=== PATIENT | male | born 1950 | race Hispanic/Latino ===

== ENCOUNTER 2017-08-09 10:00 | Inpatient (IN) | payer OTHER, MEDICARE ==
[~2017-08-09] VITALS: Ht 172.7 cm; Wt 96.8 kg
[2017-08-09 11:00] VITALS: BP 186/91
[2017-08-09 11:12] LABS: BASOPHILS % (AUTO) 0.4 % (0.0-5.0); EOSINOPHILS % (AUTO) 7.3 % (0.0-8.0); HEMATOCRIT 41.2 % (42-54); LYMPHOCYTES % (AUTO) 33.7 % (21.0-51.0); MEAN CORPUSCULAR HEMOGLOBIN 30.7 pg (27.0-33.0); MEAN CORPUSCULAR HGB CONC 34.7 g/dL (32.0-36.0); MEAN CORPUSCULAR VOLUME 88.5 fL (79-99); MONOCYTES % (AUTO) 14.5 % (3.0-13.0); NEUTROPHILS % (AUTO) 44.1 % (40.0-77.0); PLATELET COUNT (AUTO) 177 K/uL (130-400); RED BLOOD CELL COUNT(AUTO) 4.66 MIL/uL (4.50-6.20); RED CELL DISTRIBUTION WIDTH 14.3 % (11.0-15.5); WHITE BLOOD COUNT (AUTO) 5.3 K/uL (4.8-10.8)
[2017-08-09 11:30] LABS: INR 0.98 (0.85-1.15); PARTIAL THROMBOPLASTIN TIME 26.4 SEC (26.3-35.5); PROTHROMBIN TIME 10.3 SEC (9.6-11.6)
[2017-08-09 12:50] LABS: APPEARANCE,URINE Clear (CLEAR); BILIRUBIN,URINE Negative (NEGATIVE); COLOR,URINE Yellow (YELLOW); GLUCOSE, URINE (UA) Negative (NEGATIVE); KETONES,URINE Negative (NEGATIVE); LEUKOCYTE ESTERASE ,URINE Negative (NEGATIVE); NITRATE,URINE Negative (NEGATIVE); OCCULT BLOOD,URINE Negative (NEGATIVE); PROTEIN,URINE Trace (NEGATIVE); UROBILINOGEN,URINE 0.2 mg/dL (0.2-1.0)
[2017-08-09 13:12] LABS: BACTERIA,URINE Rare /HPF (None Seen); RBC,URINE 0-1 /HPF (0-1); SQUAMOUS EPITHELIAL CELL,UR Rare /LPF (0-2); WBC,URINE None Seen /HPF (0-1)
[2017-08-09] MEDS ORDERED: ASPI-555 PO (14:46)
[2017-08-09] MEDS ORDERED: LOSA100T29 PO (14:46)
[2017-08-09] MEDS ORDERED: ALLO300T2 PO (14:46)
[2017-08-09] MEDS ORDERED: METO-391 PO (14:46)
[2017-08-09] MEDS ORDERED: BENZ-51 PO (14:46)
[2017-08-09] MEDS ORDERED: LEVO175T9 PO (14:46)
[2017-08-09] MEDS ORDERED: CEFU500T67 PO (14:46)
[2017-08-09] MEDS ORDERED: OMEG1CAP31 PO (14:46)
[2017-08-11] VITALS (18 sets, daily range): BP systolic 120–162; BP diastolic 72–102
[2017-08-11] MEDS ORDERED: CEFAZOLIN SODIUM 1 GM VIAL ONE (06:31)
[2017-08-11] MEDS ORDERED: SODIUM CHLORIDE 0.9% 1000ML 1,000 ML IV ONE (06:31)
[2017-08-11] MEDS ORDERED: ISOVUE-300 100 ML VIAL IV ONE (10:00)
[2017-08-11] MEDS ORDERED: HEPARIN SODIUM 1000UNIT/ML 10ML VIAL ONE ×2 (10:00→13:09)
[2017-08-11] MEDS ORDERED: LIDOCAINE PF 2% 5ML ABBOJECT ONE (10:03)
[2017-08-11] MEDS ORDERED: DEXAMETHASONE SOD PHOSPHATE 10MG/ML 1ML VIAL ONE (10:03)
[2017-08-11] MEDS ORDERED: ONDANSETRON HCL 4 MG/2 ML VIAL ONE (10:03)
[2017-08-11] MEDS ORDERED: GLYCOPYRROLATE 0.2 MG/ML 5 ML VIAL ONE (10:03)
[2017-08-11] MEDS ORDERED: SUCCINYLCHOLINE 200MG/10ML SYR ONE (10:03)
[2017-08-11] MEDS ORDERED: PROPOFOL 10 MG/ML 20ML VIAL IV ONE ×3 (10:04→13:30)
[2017-08-11] MEDS ORDERED: MIDAZOLAM HCL 1 MG/ML 2ML VIAL ONE (10:04)
[2017-08-11] MEDS ORDERED: FENTANYL CITRATE PF 50 MCG/1 ML 2ML VIAL ONE ×2 (10:04→11:45)
[2017-08-11] MEDS ORDERED: CEFAZOLIN 1GM / D5W 50ML 0 ML ONE (10:26)
[2017-08-11] MEDS ORDERED: ACETAMINOPHEN 325 MG TAB PO PRN ×2 (13:45)
[2017-08-11] MEDS ORDERED: ACETAMINOPHEN-CODEINE 300/30MG TAB PO PRN (13:45)
[2017-08-11] MEDS ORDERED: ONDANSETRON HCL 4 MG/2 ML VIAL IV PRN (13:45)
[2017-08-11] MEDS ORDERED: TEMAZEPAM 30 MG CAP PO PRN (13:45)
[2017-08-11] MEDS ORDERED: MORPHINE SULFATE 5 MG/ML VIAL IV PRN (13:45)
[2017-08-11] MEDS ORDERED: MORPHINE SULFATE 4 MG/1ML SYG IV PRN (13:45)
[2017-08-11 17:50] LABS: MEAN CORPUSCULAR HEMOGLOBIN 30.6 pg (27.0-33.0); MEAN CORPUSCULAR HGB CONC 34.8 g/dL (32.0-36.0); MEAN CORPUSCULAR VOLUME 87.8 fL (79-99); PLATELET COUNT (AUTO) 160 K/uL (130-400); RED BLOOD CELL COUNT(AUTO) 3.98 MIL/uL (4.50-6.20); RED CELL DISTRIBUTION WIDTH 14.2 % (11.0-15.5); WHITE BLOOD COUNT (AUTO) 10.4 K/uL (4.8-10.8)
[2017-08-11] MEDS ORDERED: CEFUROXIME AXETIL 250 MG TABLET PO SCH (21:00)
[2017-08-11] MEDS: BENZONATATE 100 MG CAPSULE PO SCH (21:02)
[2017-08-11] MEDS: FISH OIL 1000 MG/CAP PO SCH (21:02)
[2017-08-11] MEDS: SODIUM CHLORIDE 0.9% 1000ML 1,000 ML IV SCH (21:03)
[2017-08-11] MEDS: ACETAMINOPHEN-CODEINE 300/30MG TAB PO PRN (21:18)
[2017-08-11] MEDS ORDERED: CEFAZOLIN 1GM / D5W 50ML 50 ML IV SCH (23:59)
[2017-08-11] MEDS ORDERED: CEFAZOLIN SODIUM 1 GM VIAL IVP SCH (23:59)
[2017-08-12] VITALS (9 sets, daily range): BP systolic 127–140; BP diastolic 56–90
[2017-08-12 03:47] LABS: HEMATOCRIT 31.2 % (42-54); MEAN CORPUSCULAR HEMOGLOBIN 30.6 pg (27.0-33.0); MEAN CORPUSCULAR HGB CONC 34.9 g/dL (32.0-36.0); MEAN CORPUSCULAR VOLUME 87.8 fL (79-99); PLATELET COUNT (AUTO) 146 K/uL (130-400); RED BLOOD CELL COUNT(AUTO) 3.55 MIL/uL (4.50-6.20); RED CELL DISTRIBUTION WIDTH 14.2 % (11.0-15.5); WHITE BLOOD COUNT (AUTO) 10.8 K/uL (4.8-10.8)
[2017-08-12] MEDS: ACETAMINOPHEN-CODEINE 300/30MG TAB PO PRN (03:53)
[2017-08-12 04:03] LABS: CREATININE 1.1 mg/dL (0.5-1.5); POTASSIUM 3.9 mmol/L (3.5-5.1)
[2017-08-12] MEDS ORDERED: LEVOTHYROXINE 100 MCG TABLET ONE (05:40)
[2017-08-12] MEDS: SODIUM CHLORIDE 0.9% 1000ML 1,000 ML IV SCH (05:41)
[2017-08-12] MEDS ORDERED: LEVOTHYROXINE 75 MCG TABLET PO SCH (06:30)
[2017-08-12] MEDS ORDERED: LEVOTHYROXINE 100 MCG VIAL IV SCH (06:30)
[2017-08-12] MEDS: BENZONATATE 100 MG CAPSULE PO SCH (07:55)
[2017-08-12] MEDS: FISH OIL 1000 MG/CAP PO SCH (07:55)
[2017-08-12 08:15] LABS: CHOLESTEROL 133 mg/dL (<200); HDL CHOLESTEROL 23 mg/dL (29-71); LDL DIRECT 89 mg/dL (0-99); TRIGLYCERIDES 149 mg/dL (30-200)
[2017-08-12] MEDS ORDERED: METOPROLOL TARTRATE 25 MG TAB PO SCH (09:00)
[2017-08-12] MEDS ORDERED: ALLOPURINOL 300 MG TABLET PO SCH (09:00)
[2017-08-12] MEDS ORDERED: LOSARTAN 100 MG TABLET PO SCH (09:00)
[2017-08-12] MEDS ORDERED: ASPIRIN 81 MG EC TAB PO SCH (09:00)
[2017-09-10] MEDS ORDERED: COLC0.6C3 PO (11:15)
[2017-09-10] MEDS ORDERED: ASPI-1181 PO (11:15)
[2017-09-14] MEDS ORDERED: CLOP75TA14 PO (14:16)
== END 2017-08-12 10:50 | disposition home or self-care (01) | DRG 269 ==
LOC: EDSTATUS 10:00 → DAHIP 08-11 05:36 → 2BH 08-11 14:36
PROVIDERS: ADMIT Internal Medicine Cardiovascular Disease; ATTEND Internal Medicine Cardiovascular Disease
PROC: B4141ZZ Fluoroscopy of Superior Mesenteric Artery using Low Osmolar Contrast (ICD-10-PCS; 2017-08-11)
PROC: B4101ZZ Fluoroscopy of Abdominal Aorta using Low Osmolar Contrast (ICD-10-PCS; 2017-08-11)
PROC: B4161ZZ Fluoroscopy of Right Renal Artery using Low Osmolar Contrast (ICD-10-PCS; 2017-08-11)
PROC: 04V03DZ Restriction of Abdominal Aorta with Intraluminal Device, Percutaneous Approach (ICD-10-PCS; 2017-08-11)
PROC: 047C3ZZ Dilation of Right Common Iliac Artery, Percutaneous Approach (ICD-10-PCS; 2017-08-11)
PROC: 047D3ZZ Dilation of Left Common Iliac Artery, Percutaneous Approach (ICD-10-PCS; 2017-08-11)
PROC: 04753DZ Dilation of Superior Mesenteric Artery with Intraluminal Device, Percutaneous Approach (ICD-10-PCS; principal; 2017-08-11 09:20)
DX: I71.4 Abdominal aortic aneurysm, without rupture (principal); I65.23 Occlusion and stenosis of bilateral carotid arteries; N28.0 Ischemia and infarction of kidney; E03.9 Hypothyroidism, unspecified; E78.5 Hyperlipidemia, unspecified; I10 Essential (primary) hypertension; I73.9 Peripheral vascular disease, unspecified; Z28.21 Immunization not carried out because of patient refusal
CPT/HCPCS: 34705; 34713; 36245; 36251; 36415; 37236; 71045; 75726; 80048; 80061; 81001; 85025; 85027; 85347; 85610; 85730; 86850; 86900; 86901; 86922; 93005; A4218; A4344; A4606; C1725; C1760; C1769; C1887; C1894; J0330; J0690; J1100; J1644; J2001; J2250; J2405; J2704; J3010; J3490; J7030; J7040; J7120; Q9967

== ENCOUNTER 2017-08-16 10:18 | Emergency (ER) | payer OTHER, MEDICARE ==
[~2017-08-16 10:18] MED LIST: ALLO300T2 PO; ASPI-555 PO; BENZ-51 PO; CEFU500T67 PO; LEVO175T9 PO; LOSA100T29 PO; METO-391 PO; OMEG1CAP31 PO
[2017-08-16] MEDS ORDERED: SODIUM CHLORIDE 0.9% 1000ML 1,000 ML IV ONE (11:08)
[2017-08-16] MEDS ORDERED: ONDANSETRON HCL 4 MG/2 ML VIAL ONE (11:08)
[2017-08-16] MEDS ORDERED: MORPHINE SULFATE 4 MG/1ML SYG ONE (11:08)
[2017-08-16 11:28] LABS: BASOPHILS % (AUTO) 0.4 % (0.0-5.0); EOSINOPHILS % (AUTO) 5.3 % (0.0-8.0); HEMATOCRIT 29.4 % (42-54); LYMPHOCYTES % (AUTO) 15.5 % (21.0-51.0); MEAN CORPUSCULAR HEMOGLOBIN 31.1 pg (27.0-33.0); MEAN CORPUSCULAR HGB CONC 35.5 g/dL (32.0-36.0); MEAN CORPUSCULAR VOLUME 87.6 fL (79-99); MONOCYTES % (AUTO) 11.8 % (3.0-13.0); PLATELET COUNT (AUTO) 189 K/uL (130-400); RED BLOOD CELL COUNT(AUTO) 3.35 MIL/uL (4.50-6.20); RED CELL DISTRIBUTION WIDTH 14.1 % (11.0-15.5); WHITE BLOOD COUNT (AUTO) 9.6 K/uL (4.8-10.8)
[2017-08-16 11:36] LABS: CREATININE 1.2 mg/dL (0.5-1.5); POTASSIUM 3.5 mmol/L (3.5-5.1)
[2017-08-16 11:38] LABS: INR 1.01 (0.85-1.15); PARTIAL THROMBOPLASTIN TIME 25.7 SEC (26.3-35.5); PROTHROMBIN TIME 10.6 SEC (9.6-11.6)
[2017-08-16 11:40] LABS: ALBUMIN 2.9 g/dL (3.5-5.0); BILIRUBIN,TOTAL 0.8 mg/dL (0.2-1.0); TOTAL PROTEIN, SERUM 7.8 g/dL (6.0-8.3)
[2017-08-16 12:50] LABS: APPEARANCE,URINE Clear (CLEAR); BILIRUBIN,URINE Negative (NEGATIVE); COLOR,URINE Yellow (YELLOW); GLUCOSE, URINE (UA) Negative (NEGATIVE); KETONES,URINE Negative (NEGATIVE); LEUKOCYTE ESTERASE ,URINE Negative (NEGATIVE); NITRATE,URINE Negative (NEGATIVE); OCCULT BLOOD,URINE Negative (NEGATIVE); PH,URINE 6.5 (5.0-8.0); PROTEIN,URINE POS 1+ (NEGATIVE)
[2017-08-16 13:13] LABS: BACTERIA,URINE Rare /HPF (None Seen); HYALINE CASTS, URINE 0-1 /LPF (0-1 /LPF); MUCUS,URINE Rare LPF (None Seen); RBC,URINE None Seen /HPF (0-1); SQUAMOUS EPITHELIAL CELL,UR Rare /LPF (0-2); WBC,URINE None Seen /HPF (0-1)
[2017-09-10] MEDS ORDERED: COLC0.6C3 PO (11:15)
[2017-09-10] MEDS ORDERED: ASPI-1181 PO (11:15)
[2017-09-14] MEDS ORDERED: CLOP75TA14 PO (14:16)
== END 2017-08-16 14:08 | disposition home or self-care (01) ==
LOC: EDH 10:18
DX: N99.840 Postprocedural hematoma of a genitourinary system organ or structure following a genitourinary system procedure (principal); D64.9 Anemia, unspecified; I10 Essential (primary) hypertension; E78.00 Pure hypercholesterolemia, unspecified; Z98.890 Other specified postprocedural states
CPT/HCPCS: 36415; 76870; 80053; 81001; 85025; 85610; 85730; 96360; 96361; 99285; J7030; J2270; J2405

== ENCOUNTER → 2020-11-20 | Outpatient (CLI) | payer OTHER, MEDICARE ==
[~2020-11-20] MED LIST changes: -ALLO300T2 PO; +ASPI-1443 PO; -ASPI-555 PO; -BENZ-51 PO; -CEFU500T67 PO; +CLOP75TA14 PO; +COLC0.6C3 PO; +IOHEXOL-350 75 ML VIAL IV ONE; -LOSA100T29 PO; +LOSA100T58 PO; -METO-391 PO; +METOPROLOL PO; -OMEG1CAP31 PO; +OMEGA 3 PO
[2020-11-20 09:11] LABS: CREATININE 1.3 mg/dL (0.5-1.5)
== END | disposition home or self-care (01) ==
LOC: RAH 08:17
PROVIDERS: ATTEND Internal Medicine Cardiovascular Disease
DX: I65.23 Occlusion and stenosis of bilateral carotid arteries (principal)
CPT/HCPCS: 36415; 70498; 82565; 84520; Q9967

== ENCOUNTER 2021-12-15 07:04 | Day surgery (SDC) | payer OTHER, MEDICARE ==
[2021-12-11 12:00] LABS: BASOPHILS % (AUTO) 0.8 % (0.0-5.0); EOSINOPHILS % (AUTO) 3.2 % (0.0-8.0); HEMATOCRIT 42.7 % (42-54); MEAN CORPUSCULAR HEMOGLOBIN 30.1 pg (27.0-33.0); MEAN CORPUSCULAR HGB CONC 34.7 g/dL (32.0-36.0); MONOCYTES % (AUTO) 11.7 % (3.0-13.0); NEUTROPHILS % (AUTO) 55.5 % (40.0-77.0); PLATELET COUNT (AUTO) 205 K/uL (130-400); RED BLOOD CELL COUNT(AUTO) 4.91 MIL/uL (4.50-6.20); RED CELL DISTRIBUTION WIDTH 13.3 % (11.0-15.5); WHITE BLOOD COUNT (AUTO) 7.9 K/uL (4.8-10.8)
[2021-12-11 12:11] LABS: CREATININE 1.2 mg/dL (0.5-1.5); INR 0.97 (0.85-1.15); POTASSIUM 3.7 mmol/L (3.5-5.1); PROTHROMBIN TIME 10.6 SEC (9.6-11.6)
[2021-12-11 12:12] LABS: PARTIAL THROMBOPLASTIN TIME 25.4 SEC (26.3-35.5)
[2021-12-11 12:16] LABS: APPEARANCE,URINE CLEAR (CLEAR); BILIRUBIN,URINE NEGATIVE (NEGATIVE); COLOR,URINE YELLOW (YELLOW); GLUCOSE, URINE (UA) NEGATIVE (NEGATIVE); KETONES,URINE NEGATIVE (NEGATIVE); LEUKOCYTE ESTERASE ,URINE NEGATIVE (NEGATIVE); NITRATE,URINE NEGATIVE (NEGATIVE); OCCULT BLOOD,URINE NEGATIVE (NEGATIVE); PROTEIN,URINE 30 mg/dL (NEGATIVE); UROBILINOGEN,URINE 0.2 mg/dL (0.2-1.0)
[2021-12-11 12:24] LABS: BACTERIA,URINE None Seen /HPF (None Seen); RBC,URINE None Seen /HPF (0-1); SQUAMOUS EPITHELIAL CELL,UR 0-2 /HPF (0-2); WBC,URINE None Seen /HPF (0-1)
[2021-12-11 12:36] LABS: B-TYPE NATRIURETIC PEPTIDE 33 pg/mL (0-100)
[2021-12-11 13:02] VITALS: BP 157/93
[2021-12-15] VITALS (11 sets, daily range): BP systolic 118–166; BP diastolic 70–93
[~2021-12-15] VITALS: Ht 167.6 cm; Wt 96.6 kg
[~2021-12-15 07:04] MED LIST changes: +AMLO-257 PO; +EZET10TA13 PO; +FISH1CAP27 PO; -IOHEXOL-350 75 ML VIAL IV ONE; +LEVO150C4 PO; -LEVO175T9 PO; +METO-408 PO; -METOPROLOL PO; -OMEGA 3 PO
[2021-12-15] MEDS ORDERED: 0.9%NACL 1000ML 1,000 ML IV ONE (08:12)
[2021-12-15] MEDS ORDERED: HEPARIN 10,000 UNIT/10ML (1,000 UNIT/ML) VIAL ONE (09:51)
[2021-12-15] MEDS ORDERED: MEPERIDINE-PF 25 MG/ML SYG ONE ×2 (09:51→10:21)
[2021-12-15] MEDS ORDERED: NITROGLYCERIN 50MG VIAL ONE (09:51)
[2021-12-15] MEDS ORDERED: IOHEXOL 350 MG/ML 100ML INFUS..BTL IV ONE (09:51)
[2021-12-15] MEDS ORDERED: IOHEXOL-350 50ML VIAL IV ONE (09:51)
[2021-12-15] MEDS ORDERED: SODIUM BICARB 50MEQ 50ML VIAL 50 ML ONE (09:51)
[2021-12-15] MEDS ORDERED: MIDAZOLAM HCL 1 MG/ML 2ML VIAL ONE ×2 (09:52→10:21)
[2021-12-15] MEDS ORDERED: LIDOCAINE HCL 400MG/20ML VIAL ONE (09:52)
[2021-12-15] MEDS ORDERED: NICARDIPINE 25MG INJ IV ONE (10:07)
[2021-12-15] MEDS ORDERED: 0.9%NACL 1000ML 1,000 ML IV SCH (11:30)
[2021-12-15] MEDS ORDERED: DEXTROSE 50%-WATER 50 ML DISP.SYRIN IV PRN (11:30)
[2021-12-15] MEDS ORDERED: INSULIN HUMULIN R 100 UNIT/ML 3ML SQ SCH (11:30)
== END 2021-12-15 18:00 | disposition home or self-care (01) ==
LOC: DAH 07:04
PROVIDERS: ATTEND Internal Medicine Cardiovascular Disease
DX: I25.119 Atherosclerotic heart disease of native coronary artery with unspecified angina pectoris (principal); I71.4 Abdominal aortic aneurysm, without rupture; I25.82 Chronic total occlusion of coronary artery; I70.1 Atherosclerosis of renal artery; I12.9 Hypertensive chronic kidney disease with stage 1 through stage 4 chronic kidney disease, or unspecified chronic kidney disease; N18.9 Chronic kidney disease, unspecified; I73.9 Peripheral vascular disease, unspecified; Z98.890 Other specified postprocedural states; Z79.899 Other long term (current) drug therapy; Z79.01 Long term (current) use of anticoagulants
CPT/HCPCS: 36245; 36251; 36415; 71045; 75726; 80048; 81001; 83880; 85025; 85610; 85730; 93005; 93458; A4215; A4216; A4221; A4222; A4223 ×3; A4606; A4663; C1769 ×2; C1894; J1644 ×2; J2175 ×2; J2250 ×2; J3490 ×4; J7030; Q9965; Q9967; 96360; 96361; 99156; 99157